=== PATIENT | female | born 1970 | race Caucasian/White ===

== ENCOUNTER 2024-06-23 10:06 | Emergency (ER) | payer OTHER, SELFPAY ==
[2024-06-23 10:20] VITALS: BP 173/94
--- NOTE | 2024-06-23 10:50 | ED.GENMED ---
History of Present Illness
General
Chief Complaint: Musculo-Skeletal Complaint
Time Seen by Provider: 06/23/24 10:39
History of Present Illness
History of Present Illness:
HPI: The patient presents with low back and left hip pain. Tylenol was tried this morning and initially did not help but now overall feels improved. There is been no injury. 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
EXAM:
GENERAL: Well appearing but appears in very mild distress related the low back pain
HEENT: Moist oral mucosa
ABDOMEN: Soft with no peritoneal signs, no tenderness
BACK: There is no midline tenderness, there is no significant paraspinal tenderness, negative straight leg raise
NEUROLOGIC: Excellent strength all extremities, no coordination deficits
PSYCHIATRIC: Appropriate mental status, normal insight and judgement
EXTREMITIES: Nontender, no edema, moves all extremities equally
SKIN: No rash, no lesions
TIME OF INITIAL ENCOUNTER: 10:50 AM
NUMBER AND COMPLEXITY OF PROBLEMS ADDRESSED AT THE ENCOUNTER
� Chronic conditions affecting care: Migraine and high blood pressure, has had a left hip replacement and fusion at L3-L5.
� Acute Exacerbation and/or Progression of Chronic Illness: This is an acute exacerbation of a chronic problem
� Differential Diagnosis includes: Acute exacerbation of chronic low back pain, highly doubt ureteral stone type of pain based on location of pain, sciatica less likely as there is no radicular symptoms and has a negative
straight leg raise
AMOUNT AND/OR COMPLEXITY OF DATA TO BE REVIEWED AND ANALYZED
� I performed an independent evaluation of and my interpretation is:
EKG:
CT:
X-rays: X-ray of the lumbar spine shows no acute fracture. Postop changes as well as degenerative changes noted. X-ray of the left hip relatively unremarkable�
Laboratory Studies:
Other:
� Review of other/old records: Reviewed records�she has not had spine imaging here at [facility] in the past
� Clinical information was obtained by an independent historian: None needed
� Prescriptions/Medications Considered but not given: Offered/considered steroids for her however she does not have radicular type of pain and she does not really tolerate them well. Considered a shot of Toradol however the
patient states she is had an allergy to Advil in the past but can take Aleve. Will hold off on NSAIDs at this time.
� Further testing considered but not performed: No clear indication for MRI at this time as there are no back pain 'red flags'
RISK OF COMPLICATIONS AND/OR MORBIDITY OR MORTALITY OF PATIENT MANAGEMENT
� Social determinants of health affecting care: Lives at home
� Discussion with other providers:
� Escalation of care including admission/observation vs risk of discharge considered: At least questionable NSAID intolerance therefore we will hold off on a dose of Toradol. She overall feels improved with Tylenol that she took
earlier. She requests plain film imaging which I feel is reasonable. On reassessment at 2 PM, the patient is well-appearing and appears comfortable. She states she has been to physical therapy in the past.
Past History
Past History
ED Past Medical History: HTN (Untreated) and Other (Migraines)
Social History
Tobacco: Non-smoker
Personal:
Living: with family
Phy Exam
Physical Exam
Physical Exam:
See HPI
Course
Orders/Labs/Results
Orders:
Orders
06/23/24 10:55
CR Hip - LT w/wo Pel 2-3 Vw* Urgent
Comment:
Reason For Exam: pain
Include a pelvis x-ray?: Yes
CR Lumbar Spine Comp Min 4 Vw* Urgent
Comment:
Reason For Exam: pain left
Vital Signs
Initial and Last Documented VS:
Initial Vital Signs
Temp Pulse Resp BP Pulse Ox
98.1 F 96 18 173/94 95
06/23/24 10:20 06/23/24 10:20 06/23/24 10:20 06/23/24 10:20 06/23/24 10:20
Last Documented Vital Signs
Temp Pulse Resp BP Pulse Ox
98.1 F 89 20 133/89 98
06/23/24 10:20 06/23/24 13:21 06/23/24 13:21 06/23/24 13:21 06/23/24 13:21
*Critical Care Note
Total Time (30-74mins, 75-104mins- exclusive of procedures): Not Applicable
ED Attending Note
-
Portions of this chart may have been created with voice recognition software.� Occasional wrong word or��sound alike� substitutions may have occurred due to the inherent limitations of voice recognition software.
Discharge Plan
Departure
Patient Disposition: Home (Routine Discharge)
Date of Disposition: 06/23/24
Time of Disposition: 13:58
Patient with high blood pressure during this ER visit?: Yes
Discharge Problem:
Low back pain
Instructions: Low Back Pain ED, BLOOD PRESSURE
Prescriptions:
No Action
prochlorperazine maleate 10 MG tablet
10 mg PO Q8HPRN PRN (Reason: headache and nausea) Qty: 10 0RF
Referrals:
Hilaria Herman CRNP [Family Provider] -
Osmin Alvarado MD [Active] - Follow up in 2-3 days
Activity Restrictions/Additional Instructions:
Continue Tylenol for pain. Consider following up with Dr. Alvarado. Return if worse.
Interventions
Interventions:
*Risk Screen - Suicide Last Done: 06/23/24 10:20
*General Assessment Last Done: 06/23/24 10:20
*Neglect/Abuse Screening Last Done: 06/23/24 10:20
*ED COVID-19 Vaccine History Last Done: 06/23/24 10:20
ED-Musculoskeletal Assessment Last Done: 06/23/24 13:27
Discharge Date and Time
Print Language: SLOVAK
[2024-06-23 13:21] VITALS: BP 133/89
[2024-06-23 14:24] VITALS: BP 137/88
[2024-06-23 14:25] VITALS: BP 137/88
== END 2024-06-23 14:26 | disposition home or self-care (01) ==
LOC: EMR 10:06
PROVIDERS: EMERGENCY PHYSICIAN Emergency Medicine; FAMILY PHYSICIAN Nurse Practitioner Family
DX: M54.50 Low back pain, unspecified (principal); Z96.642 Presence of left artificial hip joint
CPT/HCPCS: 99283; 72110; 73502